=== PATIENT | male | born 1965 | race African-American/Black ===

== ENCOUNTER 2021-01-31 22:06 | Inpatient (IN) | payer MEDICAID ==
[~2021-01-31] VITALS: Ht 182.9 cm; Wt 81.6 kg
[2021-01-31] MEDS ORDERED: ASPIRIN 81MG TABLET PO ONE (23:00)
[2021-01-31] MEDS ORDERED: NITROGLYCERIN OINT 1GM/INCH UDPKT TD ONE (23:00)
[2021-01-31 23:26] LABS: CHLORIDE 105 mEq/L (98-107)
[2021-01-31 23:28] LABS: BASOPHILS % 0.6 % (0.0-2.0); EOSINOPHILS % 4.4 % (0.0-5.0); HEMOGLOBIN. 14.6 g/dL (14.0-18.0); LYMPHOCYTES % 52.3 % (20.0-50.0); MEAN CORPUSCULAR HEMOGLOBIN 33.4 pg (28.0-32.0); MEAN CORPUSCULAR VOLUME 98.2 fL (80.0-94.0); MEAN PLATELET VOLUME 7.7 fl (7.4-10.4); MONOCYTES % 12.3 % (2.0-8.0); NEUTROPHILS % 30.4 % (40.0-76.0); PLATELET 132 x1000/uL (130-400); RED BLOOD CELL COUNT 4.38 mill/uL (4.7-6.1); RED CELL DISTRIBUTION WIDTH 13.3 % (11.6-14.6)
[2021-01-31] MEDS ORDERED: AZITHROMYCIN 500 MG in DEXT 5% WATER 250 ML IV NR (23:30)
[2021-01-31 23:32] LABS: ETHANOL BLOOD 279 mg/dL
[2021-02-01] MEDS ORDERED: CEFTRIAXONE 1 G PREMIX 50 ML IV NR (00:30)
[2021-02-01 01:38] LABS: *BARBITURATES SCREEN URINE NEGATIVE (NEGATIVE); *BENZODIAZEPINES SCREEN URINE PRESUMTIVE POSITIVE (NEGATIVE); *COCAINE SCREEN URINE NEGATIVE (NEGATIVE)
[2021-02-01 01:39] LABS: *AMPHETAMINES SCREEN URINE NEGATIVE (NEGATIVE); CANNABINOID URINE SCREEN NEGATIVE (NEGATIVE); METHADONE URINE SCREEN NEGATIVE (NEGATIVE); OPIATES URINE SCREEN NEGATIVE (NEGATIVE); PHENCYCLIDINE URINE SCREEN NEGATIVE (NEGATIVE)
[2021-02-01 05:51] VITALS: BP 122/89
[2021-02-01] MEDS ORDERED: ACETAMINOPHEN 325MG TABLET PO PRN (06:45)
[2021-02-01] MEDS ORDERED: HYDROCODONE/ACETAMINOPHEN 5/325MG TABLET PO PRN (06:45)
[2021-02-01] MEDS ORDERED: IPRATROPIUM/ALBUTEROL 0.5-3(2.5)MG/3ML NEB HHN PRN (06:45)
[2021-02-01] MEDS ORDERED: ONDANSETRON HCL 4MG/2ML INJ IV PRN (06:45)
[2021-02-01 08:00] VITALS: BP 110/72
[2021-02-01] MEDS ORDERED: FOLIC ACID 1 MG, THIAMINE HCL 100 MG, MVI, ADULT NO.1 10 ML in DEXTROSE 5% WATER 1,000 ML IV ONE (08:00)
[2021-02-01 08:52] LABS: BASOPHILS % 0.8 % (0.0-2.0); HEMATOCRIT. 35.1 % (42.0-52.0); HEMOGLOBIN. 12.3 g/dL (14.0-18.0); MEAN CORPUSCULAR HEMOGLOBIN 33.8 pg (28.0-32.0); MEAN CORPUSCULAR VOLUME 96.6 fL (80.0-94.0); MEAN PLATELET VOLUME 7.7 fl (7.4-10.4); NEUTROPHILS % 32.2 % (40.0-76.0); PLATELET 145 x1000/uL (130-400); RED BLOOD CELL COUNT 3.63 mill/uL (4.7-6.1); RED CELL DISTRIBUTION WIDTH 13.5 % (11.6-14.6)
[2021-02-01 08:59] LABS: CHLORIDE 108 mEq/L (98-107)
[2021-02-01 09:09] LABS: LDL CHOLESTEROL 83 mg/dL (5-100)
[2021-02-01 09:10] LABS: HDL CHOLESTEROL 73 mg/dL (40-59)
[2021-02-01] MEDS: CHLORDIAZEPOXIDE 25MG CAPSULE PO SCH ×3 (09:50→20:31)
[2021-02-01] MEDS: SODIUM CHLORIDE 0.9% 1,000 ML IV SCH ×2 (09:50→20:32)
[2021-02-01 12:00] VITALS: BP 117/72
[2021-02-01] MEDS ORDERED: CEFTRIAXONE 1 G PREMIX 50 ML IV SCH (13:00)
[2021-02-01] MEDS ORDERED: CEFTRIAXONE 1,000 MG in DEXTROSE 5% WATER 50 ML IV SCH (14:30)
[2021-02-01 16:00] VITALS: BP 140/100
[2021-02-01] MEDS: PANTOPRAZOLE SODIUM 40 MG/VIAL IV SCH (16:32)
[2021-02-01 17:02] LABS: CREATINE KINASE MB FRACTION 1.8 ng/mL (0.5-3.6)
[2021-02-01 17:20] LABS: HEPATITIS B SURFACE ANTIGEN NEGATIVE
[2021-02-01 17:22] LABS: VITAMIN B12 SERUM 406 pg/mL (211-911)
[2021-02-01 17:49] LABS: HEPATITIS A AB IGM NEGATIVE (NEGATIVE)
[2021-02-01 20:00] VITALS: BP 137/84
[2021-02-01] MEDS ORDERED: AZITHROMYCIN 500 MG TABLET PO SCH (21:00)
[2021-02-02] VITALS (7 sets, daily range): BP systolic 125–145; BP diastolic 70–96
[2021-02-02] MEDS: CHLORDIAZEPOXIDE 25MG CAPSULE PO SCH ×2 (04:59→14:00)
[2021-02-02 06:15] LABS: EOSINOPHILS % 6.5 % (0.0-5.0); HEMATOCRIT. 38.3 % (42.0-52.0); HEMOGLOBIN. 13.1 g/dL (14.0-18.0); LYMPHOCYTES % 47.1 % (20.0-50.0); MEAN CORPUSCULAR HEMOGLOBIN 32.8 pg (28.0-32.0); MEAN CORPUSCULAR VOLUME 96.1 fL (80.0-94.0); MONOCYTES % 13.5 % (2.0-8.0); NEUTROPHILS % 31.9 % (40.0-76.0); PLATELET 161 x1000/uL (130-400); RED BLOOD CELL COUNT 3.98 mill/uL (4.7-6.1); RED CELL DISTRIBUTION WIDTH 13.2 % (11.6-14.6)
[2021-02-02] MEDS ORDERED: THIAMINE HCL 100MG TABLET PO SCH (09:00)
[2021-02-02] MEDS ORDERED: MULTIVITAMINS,THER W-MINERALS TABLET PO SCH (09:00)
[2021-02-02] MEDS ORDERED: FOLIC ACID 1MG TABLET PO SCH (09:00)
[2021-02-02] MEDS: PANTOPRAZOLE SODIUM 40 MG/VIAL IV SCH (09:09)
[2021-02-02 09:15] LABS: CHLORIDE 105 mEq/L (98-107)
[2021-02-02] MEDS ORDERED: MULT-230 MT (10:58)
[2021-02-02] MEDS ORDERED: THIA100T88 MT (10:58)
[2021-02-02] MEDS ORDERED: FOLI-43 MT (10:58)
[2021-02-02] MEDS ORDERED: PANT40TA51 MT (10:58)
[2021-02-02] MEDS ORDERED: L25 MT (10:58)
[2021-02-03] MEDS ORDERED: FAMOTIDINE 20MG TABLET PO SCH (09:00)
== END 2021-02-02 20:28 | disposition home or self-care (01) | DRG 203 ==
LOC: ER 22:06 → 8WST 02-01 01:17 → ENRESERV 02-01 02:50
PROVIDERS: ADMIT Internal Medicine; ATTEND Internal Medicine
DX: M94.0 Chondrocostal junction syndrome [Tietze] (principal); E87.2 Acidosis; D53.9 Nutritional anemia, unspecified; E78.1 Pure hyperglyceridemia; G40.909 Epilepsy, unspecified, not intractable, without status epilepticus; I10 Essential (primary) hypertension; F10.10 Alcohol abuse, uncomplicated; R74.01 Elevation of levels of liver transaminase levels; Y90.9 Presence of alcohol in blood, level not specified; Z86.73 Personal history of transient ischemic attack (TIA), and cerebral infarction without residual deficits
CPT/HCPCS: 36415; 71045; 76700; 80048; 80053; 80061; 80305; 80320; 82550; 82553; 82607; 82746; 83036; 83605; 83880; 84443; 84484; 85025; 85379; 86705; 86709; 86803; 87340; 93005; 93306; 99285; C9113; J0456; J0696; J3411; J3490; J7030; J7060; J7070; G0480